=== PATIENT | female | born 1970 | race Caucasian/White ===

== ENCOUNTER 2019-05-07 18:36 | Emergency (ER) | payer SELFPAY ==
[~2019-05-07] VITALS: Ht 167.6 cm; Wt 87.3 kg
[2019-05-07 19:03] VITALS: Ht 167.6 cm; Wt 87.3 kg
[2019-05-07 19:25] LABS: BASOPHILS 0.1 % (0-2); EOSINOPHILS 1.5 % (0-7); HEMATOCRIT 45.5 % (36.0-48.0); HEMOGLOBIN 15.1 g/dL (12-16); IMMATURE GRANULOCYTES 0.3 % (0-5); LYMPHOCYTES 37.4 % (15-50); MCH 31.1 pg (26.0-34.0); MCHC 33.2 g/dL (31.0-37.0); MCV 93.6 fL (80.0-100.0); MEAN PLATELET VOLUME 9.2 fL (7.4-10.4); MONOCYTES 7.2 % (2-11); NEUTROPHILS 53.5 % (40-80); PLATELET COUNT 358 10x3/uL (130-400); RBC 4.86 10x6/uL (4.00-5.40); RDW 13.5 % (11.5-14.5); WBC 9.1 10x3/uL (4.8-10.8)
[2019-05-07 19:42] LABS: CALC OSMOLALITY 284 mosm/kg (275-300); CALCIUM 8.2 mg/dL (8.5-10.1); CARBON DIOXIDE 25.7 mmol/L (21.0-32.0); CHLORIDE - SERUM 107 mmol/L (98-107); CREATININE - SERUM 0.9 mg/dL (0.6-1.3); GLUCOSE 114 mg/dL (74-106); POTASSIUM - SERUM 3.4 mmol/L (3.5-5.1); SODIUM 142 mmol/L (136-145); UREA NITROGEN 14 mg/dL (7-18); eGFR NON AFRICAN AMERICAN 71 mL/min (90-120)
[2019-05-07 19:51] LABS: ALBUMIN 3.3 g/dL (3.4-5.0); ALKALINE PHOSPHATASE 64 U/L (46-116); ALT (SGPT) 22 U/L (10-68); AMYLASE - SERUM 21 U/L (25-115); BILIRUBIN - TOTAL 0.46 mg/dL (0.2-1.3); LIPASE 64 U/L (73-393); PROTEIN - SERUM 6.2 g/dL (6.4-8.2)
[2019-05-07 19:54] LABS: TROPONIN-I < 0.017 ng/mL (0.000-0.060)
[2019-05-07 22:44] LABS: APPEARANCE CLEAR (CLEAR); BILIRUBIN NEGATIVE (NEGATIVE); COLOR YELLOW (YELLOW); GLUCOSE NEGATIVE (NEGATIVE); KETONE SMALL mg/dL (NEGATIVE); NITRITE NEGATIVE (NEGATIVE); PROTEIN TRACE mg/dL (NEGATIVE); SPECIFIC GRAVITY 1.025 (1.005-1.020); UROBILINOGEN NORMAL (NORMAL)
[2019-05-07 23:10] VITALS: BP 110/63
== END 2019-05-07 23:17 | disposition home or self-care (01) ==
LOC: D.ER 18:36
PROVIDERS: Family Medicine
DX: E86.0 Dehydration (principal); I95.89 Other hypotension

== ENCOUNTER 2019-09-07 14:27 | Emergency (ER) | payer MEDICAID ==
[~2019-09-07] VITALS: Ht 167.6 cm; Wt 81.8 kg
[2019-09-07 14:46] VITALS: Ht 167.6 cm; Wt 81.8 kg
[2019-09-07] MEDS ORDERED: NORCO-7.51 TAB PO (15:20)
[2019-09-07] MEDS ORDERED: CLEOCIN HCL300 MG PO (15:20)
[2019-09-07 15:44] VITALS: BP 132/77
== END 2019-09-07 15:45 | disposition home or self-care (01) ==
LOC: D.ER 14:27
DX: K02.9 Dental caries, unspecified (principal); K04.7 Periapical abscess without sinus

== ENCOUNTER 2021-01-16 23:21 | Observation (INO) | payer OTHER ==
[~2021-01-16] VITALS: Ht 167.6 cm; Wt 81.8 kg
[~2021-01-16 23:21] MED LIST: CLEOCIN HCL300 MG PO; NORCO-7.51 TAB PO
[2021-01-16 23:55] LABS: BASOPHILS 0.5 % (0-2); EOSINOPHILS 1.4 % (0-7); HEMATOCRIT 34.8 % (36.0-48.0); HEMOGLOBIN 11.8 g/dL (12-16); LYMPHOCYTES 20.7 % (15-50); MCH 30.7 pg (26.0-34.0); MCV 90.3 fL (80.0-100.0); MEAN PLATELET VOLUME 7.3 fL (7.4-10.4); NEUTROPHILS 70.4 % (40-80); PLATELET COUNT 382 10x3/uL (130-400); RBC 3.85 10x6/uL (4.00-5.40); RDW 13.1 % (11.5-14.5)
[2021-01-17 00:03] LABS: CALC OSMOLALITY 289 mosm/kg (275-300); CARBON DIOXIDE 17.3 mmol/L (21.0-32.0); CHLORIDE - SERUM 111 mmol/L (98-107); CREATININE - SERUM 0.7 mg/dL (0.6-1.3); GLUCOSE 77 mg/dL (74-106); SODIUM 145 mmol/L (136-145); UREA NITROGEN 17 mg/dL (7-18); eGFR NON AFRICAN AMERICAN > 90 mL/min (90-120)
[2021-01-17 00:09] LABS: CALCIUM 6.9 mg/dL (8.5-10.1)
[2021-01-17 00:16] LABS: ALBUMIN 3.2 g/dL (3.4-5.0); ALKALINE PHOSPHATASE 45 U/L (30-120); ALT (SGPT) 18 U/L (10-68); BILIRUBIN - TOTAL 0.32 mg/dL (0.2-1.3); CREATINE KINASE 104 UL (21-215); MAGNESIUM - SERUM 1.3 mg/dL (1.8-2.4); PROTEIN - SERUM 5.7 g/dL (6.4-8.2); THYROID STIMULATING HORMONE 2.96 uIU/mL (0.36-3.74)
[2021-01-17 00:19] LABS: C-REACTIVE PROTEIN < 0.2 mg/dL (0.0-0.9)
[2021-01-17 04:00] VITALS: BP 128/79
--- NOTE | 2021-01-17 04:36 | NUR ---
PT ARRIVED ON UNIT VIA STRETCHER, ESCORTED BY ER NURSE. SHE AMBULATED FROM STRETCHER TO RESTROOM, AND THEN TO BED. SHE CURLED UP AND WENT TO SLEEP IMMEDIATELY. URINE COLLECTED FOR ORDERED STUDIES AND DELIVERED TO LAB. SIDE RAILS UP X2 AND CALL LIGHT WITHIN REACH. FRESH WATER AT BEDSIDE. WILL MONITOR FOR NEEDS.
[2021-01-17 04:49] VITALS: BP 128/79; Ht 167.6 cm; Wt 81.8 kg
--- NOTE | 2021-01-17 05:10 | NUR ---
ADMISSION ASSESSMENT AND HISTORY COMPLETE.
[2021-01-17 05:45] LABS: BILIRUBIN NEGATIVE (NEGATIVE); KETONE 1+ mg/dL (< 1+); NITRITE NEGATIVE (NEGATIVE); PH 5.5 (5.0-8.0); SQUAMOUS EPITHELIAL 8 HPF (0-4); UROBILINOGEN NORMAL mg/dL (< 2); WHITE CELLS - URINE 1 HPF (0-4)
--- NOTE | 2021-01-17 07:56 | NUR ---
[employer] EQUIPMENT OPERATOR LIGHT. ACCIDENTALLY PUSHED IT. DENIES NEEDS AT THIS TIME. TALKING ON THE PHONE. BED LOW POSITION, CALL LIGHT IN REACH. WILL CONTINUE TO MONITOR.
[2021-01-17 08:18] LABS: ALBUMIN 3.5 g/dL (3.4-5.0); ALKALINE PHOSPHATASE 59 U/L (30-120); ALT (SGPT) 18 U/L (10-68); BILIRUBIN - TOTAL 0.52 mg/dL (0.2-1.3); CALC OSMOLALITY 279 mosm/kg (275-300); CALCIUM 8.4 mg/dL (8.5-10.1); CHLORIDE - SERUM 107 mmol/L (98-107); CREATININE - SERUM 0.7 mg/dL (0.6-1.3); GLUCOSE 92 mg/dL (74-106); PROTEIN - SERUM 6.5 g/dL (6.4-8.2); SODIUM 139 mmol/L (136-145); UREA NITROGEN 19 mg/dL (7-18); eGFR NON AFRICAN AMERICAN > 90 mL/min (90-120)
[2021-01-17 08:19] LABS: CARBON DIOXIDE 25.2 mmol/L (21.0-32.0); CREATINE KINASE 223 UL (21-215); MAGNESIUM - SERUM 2.4 mg/dL (1.8-2.4); POTASSIUM - SERUM 3.5 mmol/L (3.5-5.1)
[2021-01-17 08:20] LABS: CKMB 3.6 U/L (0.0-3.6)
[2021-01-17 08:27] VITALS: BP 109/66
[2021-01-17 12:54] VITALS: BP 126/72
--- NOTE | 2021-01-17 16:48 | NUR ---
PATIENT LEFT AMA. REMOVED BOTH IV'S. CATHETER TIPS INTACT. BELONGINGS GATHERED AND LEFT UNIT. NOTIFIED TIFFANY CARREON APN. NOTIFIED DENTAL RESIDENT.
--- NOTE | 2021-01-17 17:39 | MORECARE ---
CASE MANAGEMENT DISCHARGE SUMMARY PATIENT: GENARO ANTHONY UNIT: [id number] ADM DATE: 01/17/21 AGE: 50 : 70 SEX: F ROOM/BED: D[facility] AUTHOR: BROOKLYNN,DOC PHYSICIAN: REFERRING PHYSICIAN: CRISTHIAN HAIRSTON MD DATE OF SERVICE: 01/17/21 Case Management Discharge Planning Summary DCP REVIEW SUMMARY ANTICIPATED D/C DATE: EXPECTED LOS : CASE STATUS: DCP Not started INITIAL REVIEW: 01/17/2021 INITIAL REVIEWER: Silva Burdick FINAL DISCHARGE DISPOSITION: : FINAL REVIEWER: FINAL REVIEW DATE: DCP [employer] QUESTION: ANSWER : PATIENT: GENARO ANTHONY ENCOUNTER: [id number] MEDICAL RECORD#: [id number] ADMISSION DATE: 01/17/2021 DISCHARGE DATE: 01/17/2021 ATTENDING MD: CARLITO: AGE: 50 MARITAL STATUS: D DC PLAN ID: [id number] FACILITY: [facility] PRINTED ON: 01/17/21 17:39 CT All edits/amendments must be made on the electronic document DICTATION DATE: 01/17/21 173 CONCRETE CURER: DM 01/17/21 173 RPT#: [id number] DC DATE:01/17/21 STATUS: DIS IN [facility] [address] [place] [address] END OF REPORT
== END 2021-01-17 16:53 | disposition home or self-care (01) ==
LOC: D.ER 23:21 → D.EDHOLD 01-17 01:32 → OBSVTIME 01-17 01:32 → D.MS 01-17 03:15
PROVIDERS: Family Medicine; ADMIT Family Medicine; ATTEND Family Medicine
DX: E87.6 Hypokalemia (principal); E83.51 Hypocalcemia; E83.42 Hypomagnesemia; E87.8 Other disorders of electrolyte and fluid balance, not elsewhere classified